=== PATIENT | female | born 1985 | race Caucasian/White ===

== ENCOUNTER 2022-09-20 10:33 | Emergency (ER) | payer OTHER ==
[2022-09-20] MEDS ORDERED: MORPHINE SULFATE 2 MG/ML SYRINGE IVP STA (10:43)
[2022-09-20] MEDS ORDERED: SODIUM CHLORIDE 0.9% 1,000 ML IV STA (10:43)
[2022-09-20] MEDS ORDERED: KETOROLAC 15 MG/ML 1 ML VIAL IVP STA (10:43)
[2022-09-20] MEDS ORDERED: ONDANSETRON 4 MG/2 ML VIAL IVP STA (10:43)
--- NOTE | 2022-09-20 10:56 | ED ---
Abdominal Pain HPI - General Chief Complaint: Abdominal Pain Stated Complaint: Abd pain Time Seen by Provider: 09/20/22 10:34 Source: patient, RN notes reviewed Mode of arrival: EMS Limitations: no limitations - History of Present Illness Initial Comments: This is a 37-year-old female who presents to the emergency department for abdominal pain. States that the symptoms started 2-3 days ago. Pain is located in the left lower quadrant with pressure in the rectum. She is having loose stools that are mixed with bile. Also reports that she is dry heaving. She has a history of bowel obstructions, most recently 5 years ago, and states that this feels different. She is unable to sleep at night due to the symptoms and has been taking ibuprofen with no relief. She was given 4 mg of Zofran by EMS on route, which she states was somewhat beneficial. Denies any fevers, chills, sore throat, cough, dyspnea, chest pain, pal pitations, back pain, or headaches. MD Complaint: abdominal pain Onset/Timin -: days(s) Location: LLQ Associated Symptoms: nausea, vomiting, diarrhea - Related Data Previous Rx's Medication Instructions Recorded Ketorolac [Toradol] 10 mg PO Q6HR PRN #20 tab 09/20/22 Ondansetron Odt [Zofran Odt] 4 mg PO Q8HR PRN #20 tab 09/20/22 Allergies Allergy/AdvReac Type Severity Reaction Status Date / Time No Known Allergies Allergy Verified 09/20/22 10:57 Review of Systems ROS Statement: Those systems with pertinent positive or pertinent negative responses have been documented in the HPI. ROS Other: All systems not noted in ROS Statement are negative. Past Medical History Past Medical History: No Reported History History of Any Multi-Drug Resistant Organisms: None Reported Past Surgical History: No Surgical Hx Reported Past Psychological History: No Psychological Hx Reported Past Alcohol Use History: None Reported Past Drug Use History: None Reported General Exam General appearance: alert, in distress Head exam: Present: atraumatic, normocephalic, normal inspection Respiratory exam: Present: normal lung sounds bilaterally. Absent: respiratory distress, wheezes, rales, rhonchi, stridor Cardiovascular Exam: Present: regular rate, normal rhythm, normal heart sounds. Absent: systolic murmur, diastolic murmur, rubs, gallop, clicks GI/Abdominal exam: Present: soft, tenderness (LLQ), hypoactive bowel sounds. Absent: distended Neurological exam: Present: alert, oriented X3, CN II-XII intact Psychiatric exam: Present: normal affect, normal mood Skin exam: Present: warm, dry, intact, normal color. Absent: rash Course Vital Signs 09/20/22 09/20/22 10:51 13:44 Temperature 99.6 F Pulse Rate 93 70 Respiratory 18 16 Rate Blood Pressure 146/98 130/91 O2 Sat by Pulse 98 97 Oximetry Medical Decision Making - Medical Decision Making This is a 37-year-old female who presents to the emergency department for abdominal pain. Lab work reveals hypokalemia, and the patient was subsequently given 40 mEq of k-dur. Lab work was otherwise nonactionable. She was given IV fluids and Toradol. Computed tomography scan of the abdomen and pelvis obtained, and on my interpretation there is no evidence of free air, bowel wall thickening, or obstruction. Due to the location of her symptoms, pelvic ul trasound was subsequently obtained. This revealed no acute process such as an ovarian cyst or signs of ovarian torsion. Advised the patient that at this point we don't have a clear cause for her symptoms. She did note significant symptomatic improvement with the Toradol and Zofran. Rx for Toradol and Zofran were provided. Instructed her to avoid dxqw-toy-nrbkafv anti-inflammatories such as ibuprofen if she chooses to take the Toradol. She can also take this with Tylenol. Instructed her to slowly advance her diet as tolerated. She was given follow-up information for Dr. Zhang, and I instructed her to become reestablished with her for ongoing care of recurrent GI problems. Return precautions reviewed in depth, the patient is instructed to return to the emergency department with any new, worsening, or concerning symptoms. Patient verbalized understanding. This case was discussed in detail with the attending ED physician. Presentation, findings, and treatment plan discussed in detail as well. - Lab Data Result diagrams: 09/20/22 11:06 09/20/22 11:06 Lab Results 09/20/22 09/20/22 09/20/22 Range/Units 11:06 11:06 11:06 WBC 9.0 (3.8-10.6) k/uL RBC 4.13 (3.80-5.40) m/uL Hgb 13.5 (11.4-16.0) gm/dL Hct 36.9 (34.0-46.0) % MCV 89.3 (80.0-100.0) fL MCH 32.6 (25.0-35.0) pg MCHC 36.5 (31.0-37.0) g/dL RDW 12.3 (11.5-15.5) % Plt Count 316 (150-450) k/uL MPV 8.0 Neutrophils % 82 % Lymphocytes % 12 % Monocytes % 5 % Eosinophils % 0 % Basophils % 0 % Neutrophils # 7.3 (1.3-7.7) k/uL Lymphocytes # 1.0 (1.0-4.8) k/uL Monocytes # 0.4 (0-1.0) k/uL Eosinophils # 0.0 (0-0.7) k/uL Basophils # 0.0 (0-0.2) k/uL Sodium 140 (137-145) mmol/L Potassium 3.0 L (3.5-5.1) mmol/L Chloride 106 (98-107) mmol/L Carbon Dioxide 24 (22-30) mmol/L Anion Gap 10 mmol/L BUN 4 L (7-17) mg/dL Creatinine 0.42 L (0.52-1.04) mg/dL Est GFR (CKD-EPI)AfAm >90 (>60 ml/min/1.73 sqM) Est GFR (CKD-EPI)NonAf >90 (>60 ml/min/1.73 sqM) Glucose 100 H (74-99) mg/dL Plasma Lactic Acid Nael 0.9 (0.7-2.0) mmol/L Calcium 8.3 L (8.4-10.2) mg/dL Total Bilirubin 0.9 (0.2-1.3) mg/dL AST 23 (14-36) U/L ALT 29 (4-34) U/L Alkaline Phosphatase 66 (38-126) U/L Total Protein 7.1 (6.3-8.2) g/dL Albumin 4.4 (3.5-5.0) g/dL Amylase 42 (30-110) U/L Lipase 29 (23-300) U/L Urine Color Urine Appearance (Clear) Urine pH (5.0-8.0) Ur Specific [place] (1.001-1.035) Urine Protein (Negative) Urine Glucose (UA) (Negative) Urine Ketones (Negative) Urine Blood (Negative) Urine Nitrite (Negative) Urine Bilirubin (Negative) Urine Urobilinogen (<2.0) mg/dL Ur Leukocyte Esterase (Negative) Urine RBC (0-5) /hpf Urine WBC (0-5) /hpf Ur Squamous Epith Cells (0-4) /hpf Urine Mucus (None) /hpf Urine HCG, Qual (Not Detectd) C. difficile (EIA) Intrp (Negative) 09/20/22 09/20/22 09/20/22 Range/Units 11:46 11:46 11:46 WBC (3.8-10.6) k/uL RBC (3.80-5.40) m/uL Hgb (11.4-16.0) gm/dL Hct (34.0-46.0) % MCV (80.0-100.0) fL MCH (25.0-35.0) pg MCHC (31.0-37.0) g/dL RDW (11.5-15.5) % Plt Count (150-450) k/uL MPV Neutrophils % % Lymphocytes % % Monocytes % % Eosinophils % % Basophils % % Neutrophils # (1.3-7.7) k/uL Lymphocytes # (1.0-4.8) k/uL Monocytes # (0-1.0) k/uL Eosinophils # (0-0.7) k/uL Basophils # (0-0.2) k/uL Sodium (137-145) mmol/L Potassium (3.5-5.1) mmol/L Chloride (98-107) mmol/L Carbon Dioxide (22-30) mmol/L Anion Gap mmol/L BUN (7-17) mg/dL Creatinine (0.52-1.04) mg/dL Est GFR (CKD-EPI)AfAm (>60 ml/min/1.73 sqM) Est GFR (CKD-EPI)NonAf (>60 ml/min/1.73 sqM) Glucose (74-99) mg/dL Plasma Lactic Acid Neal (0.7-2.0) mmol/L Calcium (8.4-10.2) mg/dL Total Bilirubin (0.2-1.3) mg/dL AST (14-36) U/L ALT (4-34) U/L Alkaline Phosphatase (38-126) U/L Total Protein (6.3-8.2) g/dL Albumin (3.5-5.0) g/dL Amylase (30-110) U/L Lipase (23-300) U/L Urine Color Light Yellow Urine Appearance Clear (Clear) Urine pH 6.0 (5.0-8.0) Ur Specific [place] >1.050 H (1.001-1.035) Urine Protein Trace H (Negative) Urine Glucose (UA) Negative (Negative) Urine Ketones 3+ H (Negative) Urine Blood Trace H (Negative) Urine Nitrite Negative (Negative) Urine Bilirubin Negative (Negative) Urine Urobilinogen <2.0 (<2.0) mg/dL Ur Leukocyte Esterase Negative (Negative) Urine RBC 6 H (0-5) /hpf Urine WBC 1 (0-5) /hpf Ur Squamous Epith Cells 2 (0-4) /hpf Urine Mucus Rare H (None) /hpf Urine HCG, Qual Not Detected (Not Detectd) C. difficile (EIA) Intrp Negative (Negative) - Radiology Data Radiology results: report reviewed, image reviewed Disposition Clinical Impression: Abdominal pain Disposition: HOME SELF-CARE Instructions (If sedation given, give patient instructions): Abdominal Pain (ED) Additional Instructions: Return to the emergency department with any new, worsening, or concerning symptoms. Alternate with the Toradol and Tylenol for pain relief. If you choose to take the Toradol, do not take other lalo-xnh-ztzluuy anti-in flammatories such as ibuprofen. You can take the Zofran up to every 8 hours as needed for nausea and vomiting. You can also try dkqn-lqz-txjyrpz capsaicin cream. Slowly advance your diet as tolerated. Contact Dr. Zhang's office as listed below for ongoing management of your symptoms. Follow up with your primary care provider in 1-2 days. Prescriptions: Ketorolac [Toradol] 10 mg PO Q6HR PRN #20 tab PRN Reason: Pain Ondansetron Odt [Zofran Odt] 4 mg PO Q8HR PRN #20 tab PRN Reason: Nausea And Vomiting Is patient prescribed a controlled substance at d/c from ED?: No Referrals: Syed Thompson MD [Primary Care Provider] - 1-2 days Shwetha Zhang MD [STAFF PHYSICIAN] - 1-2 days
[2022-09-20 10:57] VITALS: TEMP 99.6
[2022-09-20 11:20] LABS: Basophils % (A) 0 %; Eosinophils % (A) 0 %; HCT 36.9 % (34.0-46.0); HGB 13.5 gm/dL (11.4-16.0); Lymphocytes % (A) 12 %; MCH 32.6 pg (25.0-35.0); MCHC 36.5 g/dL (31.0-37.0); MCV 89.3 fL (80.0-100.0); Monocytes # (A) 0.4 k/uL (0-1.0); Monocytes % (A) 5 %; Neutrophils # (A) 7.3 k/uL (1.3-7.7); Neutrophils % (A) 82 %; Platelet Count 316 k/uL (150-450); RBC 4.13 m/uL (3.80-5.40); RDW 12.3 % (11.5-15.5)
[2022-09-20 11:33] LABS: ALT 29 U/L (4-34); AST 23 U/L (14-36); African American GFR (CKD) >90 (>60 ml/min/1.73 sqM); Albumin 4.4 g/dL (3.5-5.0); Alkaline Phosphatase 66 U/L (38-126); Amylase 42 U/L (30-110); Anion Gap 10 mmol/L; Blood Urea Nitrogen 4 mg/dL (7-17); Calcium 8.3 mg/dL (8.4-10.2); Carbon Dioxide 24 mmol/L (22-30); Chloride 106 mmol/L (98-107); Glucose 100 mg/dL (74-99); Lipase 29 U/L (23-300); Non-African American GFR(CKD) >90 (>60 ml/min/1.73 sqM); Sodium 140 mmol/L (137-145); Total Bilirubin 0.9 mg/dL (0.2-1.3); Total Protein 7.1 g/dL (6.3-8.2)
[2022-09-20] MEDS ORDERED: POTASSIUM CHLORIDE ER 20 MEQ TAB.ER PO STA (11:43)
--- NOTE | 2022-09-20 11:46 | CT ---
EXAMINATION TYPE: CT abdomen pelvis w con DATE OF EXAM: 09/20/2022 COMPARISON: None HISTORY: LLQ pain CT DLP: 746.6 mGycm Automated exposure control for dose reduction was used. TECHNIQUE: Helical acquisition of images was performed from the lung bases through the pelvis. CONTRAST: Performed without Oral Contrast and with IV Contrast, patient injected with 100 mL of Isovue 300. FINDINGS: The lung bases are clear. There are surgical absence of the gallbladder. There is no biliary ductal dilatation. There is no focal mass or organomegaly involving the liver, pancreas, spleen or adrenal glands. The kidneys excrete contrast promptly and symmetrically and there is no solid renal mass or hydroneph rosis. There is no retroperitoneal adenopathy or hemorrhage in the caliber of the abdominal aorta is normal. There are surgical sutures in the right colon. The bowel loops are not dilated and there is no evide nce of obstruction. No inflammatory changes are identified in the bowel wall or mesentery There is no free intraperitoneal air or fluid. There is no pelvic mass, abscess, free fluid, adenopathy or suspicious calcification. No focal lytic or blastic osseous abnormalities are seen. IMPRESSION: 1. No evidence of acute changes within the abdomen or pelvis. 2. Postsurgical changes involving the right colon and gallbladder.
--- NOTE | 2022-09-20 12:57 | US ---
EXAMINATION TYPE: US transvaginal DATE OF EXAM: 09/20/2022 COMPARISON: Same day CT CLINICAL HISTORY: Pelvic pain. Pain TECHNIQUE: Transvaginal (TV). Transvaginal sonographic images of the pelvis were acquired. Date of LMP: 2 weeks ago EXAM MEASUREMENTS: Uterus: 10.0 x 4.7 x 5.7 cm Endometrial Stripe: 1.6 cm Right Ovary: 3.1 x 2.3 x 3.0 cm Left Ovary: 3.3 x 2.9 x 2.5 cm 1. Uterus: Anteverted wnl 2. Endometrium: Slightly thickened 3. Right Ovary: wnl 4. Left Ovary: wnl Spectral, color and waveform doppler imaging shows good arterial and venous flow within the ovaries ; there is no evidence for ovarian torsion. 5. Bilateral Adnexa: wnl 6. Posterior cul-de-sac: wnl IMPRESSION: 1. Endometrial stripe prominent but within normal limits.. 2. No adnexal mass. 3. No free fluid within the cul-de-sac 4. No intrauterine masses
[2022-09-20 13:05] LABS: Appearance,Urine Clear (Clear); Bilirubin,Urine Negative (Negative); Blood,Urine Trace (Negative); Color,Urine Light Yellow; Glucose,Urine (UA) Negative (Negative); Ketones,Urine 3+ (Negative); Leukocyte Esterase,Urine Negative (Negative); Mucus,Urine Rare /hpf; Nitrite,Urine Negative (Negative); Protein,Urine Trace (Negative); RBC,Urine 6 /hpf (0-5); Squamous Epithelial Cell,Urine 2 /hpf (0-4); Urobilinogen,Urine <2.0 mg/dL (<2.0); WBC,Urine 1 /hpf (0-5)
[2022-09-20 13:06] LABS: Specific Gravity,Urine >1.050 (1.001-1.035)
[2022-09-20 13:45] VITALS: BP 130/91; PULSE 70; RESP 16
== END 2022-09-20 14:34 | disposition home or self-care (01) ==
LOC: EC 10:33
DX: R10.32 Left lower quadrant pain (principal)
CPT/HCPCS: 99285; 36415; 80053; 82150; 83605; 83690; 85025; 81001; 81025; 87324; 87045; 83630; 87046; 93975; 76830; 74177; 96374; 96361; J1885; Q9967